=== PATIENT | male | born 1950 | race Hispanic/Latino ===

== ENCOUNTER 2018-09-27 10:08 | Day surgery (SDC) | payer OTHER ==
--- NOTE | 2018-09-27 12:23 | Anesthesia Day of Surgery ---
Anesthesia Day of Surgery - Day of Surgery Patient Examined: Yes Patient H&P Reviewed: Yes Patient is NPO: Yes
--- NOTE | 2018-09-27 12:24 | Anesthesia Consultation ---
Anesthesia Consult and Med Hx Date of service: 09/27/18 - Airway Anesthetic Teeth Evaluation: Good ROM Head & Neck: Adequate Mental/Hyoid Distance: Adequate Mallampati Class: Class II Intubation Access Assessment: Probably Good - Pre-Operative Health Status ASA Pre-Surgery Classification: ASA2 Proposed Anesthetic Plan: MAC - Cardiovascular System Hx Hypertension: Yes (high cholesterol) Hx Heart Murmur: Yes
[2018-09-27] MEDS ORDERED: VERSED IV ONE (12:28)
[2018-09-27] MEDS ORDERED: DIPRIVAN 10 MG/ML IV ONE (12:28)
--- NOTE | 2018-09-27 12:44 | Procedure Note ---
Date of procedure: 09/27/18 Pre-op diagnosis: Colon Polyp Screening/ F/H/O Cancer Post-op diagnosis: other (No Colon Polyps noted/ Moderate,Left Colon Diverticular Disease/ Moderate, Internal Hemorrhoid) Procedure: Colonoscopy Anesthesia: MAC Surgeon: LORI SHANNON Estimated blood loss: none Pathology: none Condition: stable Disposition: same day (Encourage fiber intake. Resume home medication and follow up in 1 to 2 weeks ([phone]).)
[2018-09-27] MEDS ORDERED: WATER FOR IRRIG STERILE IR ONE (12:50)
[2018-09-27] MEDS ORDERED: WATER FOR IRRIG STERILE ONE (12:50)
[2018-09-27] MEDS ORDERED: NACL 0.9% 1000 ML 1,000 ML IV SCH (13:00)
[2018-09-27] MEDS ORDERED: XYLOCAINE MPF 2% ONE (13:00)
[2018-09-27] MEDS ORDERED: PHENYLEPHRINE/NS Syringe 1,000 MCG/10 ML IV ONE (13:00)
--- NOTE | 2018-09-27 13:06 | Operative Report ---
PROCEDURE: Colonoscopy. INDICATIONS: This is a 68-year-old white male with a strong family history of cancer. The patient's father had lymphoma. Sister had breast cancer. He had a colonoscopy done as part of colon polyp screening. Last colonoscopy done was about 10 years ago. DESCRIPTION OF PROCEDURE: Procedure was done after getting informed consent with MAC anesthesia. Initial rectal exam was unremarkable. Instrument was passed through the rectum onto the cecum, which was identified with ileocecal valve and appendiceal orifice. Visualization was fair to good. The scope was retroflexed in the cecum and then withdrawn to the hepatic flexure in the straight view and then reintroduced to the cecum. No additional pathology was noted in the cecum and ascending colon, which showed normal mucosa. The transverse colon showed normal mucosa. The descending colon and the sigmoid showed moderate deep diverticular disease and the rectum showed moderate internal hemorrhoid on the retroverted view. There was no bleeding associated with the procedure. No complications associated with the procedure. Procedure was done in the GI lab with assistance of anesthesia and with the assistance of Yessi MICHELE and Jovon hurtado. ASSESSMENT: Colon polyp screening, family history of cancer. No colon polyps noted. Moderate left colon diverticular disease, moderate internal hemorrhoids. There was no bleeding associated with the procedure. No complications associated with the procedure. The patient will be encouraged to take fiber supplements and [id number] hemorrhoidal medication and follow up in the office in 1-2 weeks' time. Again, Yessi MICHELE and Jovon hurtado were in the room throughout the entirety of the procedure. [facility]# [id number] LIUDMILA/CHAO
[2018-09-27 13:45] VITALS: BP 104/71
== END 2018-09-27 10:09 | disposition home or self-care (01) ==
LOC: GIO 10:08
DX: Z12.11 Encounter for screening for malignant neoplasm of colon (principal); K57.30 Diverticulosis of large intestine without perforation or abscess without bleeding; K64.8 Other hemorrhoids; E78.00 Pure hypercholesterolemia, unspecified; I10 Essential (primary) hypertension; Z80.3 Family history of malignant neoplasm of breast; Z80.8 Family history of malignant neoplasm of other organs or systems; Z79.899 Other long term (current) drug therapy; Z98.890 Other specified postprocedural states
CPT/HCPCS: 45378; J2250; J2370; J2704